=== PATIENT | female | born 1995 | race Caucasian/White ===

== ENCOUNTER 2019-09-29 19:45 | Emergency (ER) | payer SELFPAY ==
[~2019-09-29] VITALS: Ht 167.6 cm; Wt 82.0 kg
[2019-09-29 19:49] VITALS: BP 135/75
== END 2019-09-29 21:05 | disposition left against medical advice (07) ==
LOC: ER 20:10
DX: Z53.21 Procedure and treatment not carried out due to patient leaving prior to being seen by health care provider (principal)